=== PATIENT | female | born 1965 | race Caucasian/White ===

== ENCOUNTER 2019-09-11 10:01 | Emergency (ER) | payer MEDICAID ==
[2019-09-11] MEDS ORDERED: Sodium Chloride 0.9% 10 ML Syringe FLUSH PRN (10:37)
[2019-09-11] MEDS ORDERED: Ondansetron 4 MG/2 ML SDV IVPUSH ONE (10:37)
[2019-09-11] MEDS ORDERED: Ketorolac 30 MG/ML SDV IVPUSH ONE (10:38)
[2019-09-11] MEDS ORDERED: Sodium Chloride 0.9% 1,000 ML IV SCH (10:45)
--- NOTE | 2019-09-11 11:19 | EDM.PDOC ---
ED HPI GENERAL MEDICAL PROBLEM - General Chief Complaint: Abdominal Pain Stated Complaint: L SIDE ABD AND BACK PAIN Time Seen by Provider: 09/11/19 10:27 Source of Information: Reports: Patient History Limitations: Reports: No Limitations - History of Present Illness INITIAL COMMENTS - FREE TEXT/NARRATIVE: The patient presents with left upper abdomen and left flank pain. This has been an ongoing issue for the past 2 months but is has gotten worse the past couple of days. She says the pain comes and goes. She has some nausea but no vomiting. She has been traveling a lot the past couple months and she thought it was related to that. She said she drove her father to [employer] yesterday and then the pain was worse. She has no fever, chills, cough, chest pain, shortness of breath, diarrhea or dysuria. She has no history of kidney stones. She had a history of mono and she had trouble with her spleen after that. She is doing better now. Onset: Gradual Duration: Week(s): Location: Reports: Abdomen, Back Quality: Reports: Sharp Severity: Moderate Improves with: Reports: None Worsens with: Reports: None Associated Symptoms: Reports: Nausea/Vomiting. 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 Neurological History: Reports: None Psychiatric History: Reports: None Endocrine/Metabolic History: Reports: None Hematologic History: Reports: None Immunologic History: Reports: None Oncologic (Cancer) History: Reports: None Dermatologic History: Reports: None - Infectious Disease History Infectious Disease History: Reports: None Other Infectious Disease History: Lyme's Disease - Past Surgical History GI Surgical History: Reports: Cholecystectomy Female Surgical History: Reports: Tubal Ligation Musculoskeletal Surgical History: Reports: Shoulder Surgery Other Musculoskeletal Surgeries/Procedures:: Left Shoulder Scope Social & Family History - Tobacco Use Smoking Status *Q: Never Smoker - Caffeine Use Caffeine Use: Reports: Coffee - Recreational Drug Use Recreational Drug Use: No ED ROS GENERAL - Review of Systems Review Of Systems: See Below Constitutional: Reports: No Symptoms HEENT: Reports: No Symptoms Respiratory: Reports: No Symptoms Cardiovascular: Reports: No Symptoms Endocrine: Reports: No Symptoms GI/Abdominal: Reports: Abdominal Pain, Nausea. Denies: Vomiting : Reports: Flank Pain (Left) Musculoskeletal: Reports: Back Pain (Left back pain) ED EXAM, GI/ABD - Physical Exam Exam: See Below Exam Limited By: No Limitations General Appearance: Alert, No Apparent Distress Ears: Normal External Exam Nose: Normal Inspection Head: Atraumatic, Normocephalic Neck: Normal Inspection Respiratory/Chest: No Respiratory Distress, Lungs Clear, Normal Breath Sounds Cardiovascular: Regular Rate, Rhythm, No Edema, No Murmur GI/Abdominal Exam: Soft, Non-Tender, No Organomegaly, No Mass Back Exam: CVA Tenderness (L) Extremities: Normal Inspection Course - Vital Signs Last Recorded V/S: Last Vital Signs Temp 98.1 F 09/11/19 10:22 Pulse 66 09/11/19 10:22 Resp 16 09/11/19 10:22 BP 142/78 H 09/11/19 10:22 Pulse Ox 100 09/11/19 10:22 - Orders/Labs/Meds Orders: Active Orders 24 hr Category Date Time Status Peripheral IV Care [RC] . DIRECTED Care 09/11/19 10:38 Active Sodium Chloride 0.9% [Normal Saline] 1,000 ml Med 09/11/19 10:45 Active IV ASDIRECTED Sodium Chloride 0.9% [Saline Flush] Med 09/11/19 10:37 Active 10 ml FLUSH ASDIRECTED PRN ED Antiemetic Medication Reflex [OM.PC] Stat Oth 09/11/19 10:37 Ordered Peripheral IV Insertion Adult [OM.PC] Stat Oth 09/11/19 10:37 Ordered Medication Orders Sodium Chloride (Normal Saline) 1,000 mls @ 125 mls/hr IV ASDIRECTED OPHELIA Last Admin: 09/11/19 11:04 Dose: 125 mls/hr Sodium Chloride (Saline Flush) 10 ml FLUSH ASDIRECTED PRN PRN Reason: Keep Vein Open Last Admin: 09/11/19 11:04 Dose: 10 ml Labs: Laboratory Tests 09/11/19 09/11/19 09/11/19 Range/Units 10:37 11:05 11:05 WBC 6.99 (3.98-10.04) K/mm3 RBC 5.24 H (3.98-5.22) M/mm3 Hgb 15.1 (11.2-15.7) gm/dl Hct 44.1 (34.1-44.9) % MCV 84.2 (79.4-94.8) fl MCH 28.8 (25.6-32.2) pg MCHC 34.2 (32.2-35.5) g/dl RDW Std Deviation 37.8 (36.4-46.3) fL Plt Count 297 (182-369) K/mm3 MPV 10.4 (9.4-12.3) fl Neut % (Auto) 69.8 (34.0-71.1) % Lymph % (Auto) 21.5 (19.3-51.7) % Haines % (Auto) 4.6 L (4.7-12.5) % Eos % (Auto) 3.4 (0.7-5.8) Baso % (Auto) 0.6 (0.1-1.2) % Neut # (Auto) 4.88 (1.56-6.13) K/mm3 Lymph # (Auto) 1.50 (1.18-3.74) K/mm3 Haines # (Auto) 0.32 (0.24-0.36) K/mm3 Eos # (Auto) 0.24 (0.04-0.36) K/mm3 Baso # (Auto) 0.04 (0.01-0.08) K/mm3 Sodium 141 (136-145) mEq/L Potassium 4.0 (3.5-5.1) mEq/L Chloride 104 (98-107) mEq/L Carbon Dioxide 28 (21-32) mEq/L Anion Gap 13.0 (5-15) BUN 9 (7-18) mg/dL Creatinine 0.9 (0.55-1.02) mg/dL Est Cr Clr Drug Dosing 67.67 mL/min Estimated GFR (MDRD) > 60 (>60) mL/min BUN/Creatinine Ratio 10.0 L (14-18) Glucose 118 H (74-106) mg/dL Calcium 9.5 (8.5-10.1) mg/dL Total Bilirubin 0.5 (0.2-1.0) mg/dL AST 33 (15-37) U/L ALT 78 H (14-59) U/L Alkaline Phosphatase 85 (46-116) U/L Total Protein 8.1 (6.4-8.2) g/dl Albumin 4.2 (3.4-5.0) g/dl Globulin 3.9 gm/dL Albumin/Globulin Ratio 1.1 (1-2) Lipase 118 (73-393) U/L Urine Color Yellow (Yellow) Urine Appearance Clear (Clear) Urine pH 7.0 (5.0-8.0) Ur Specific [place] 1.020 (1.005-1.030) Urine Protein Negative (Negative) Urine Glucose (UA) Negative (Negative) Urine Ketones Negative (Negative) Urine Occult Blood Trace-lysed H (Negative) Urine Nitrite Negative (Negative) Urine Bilirubin Negative (Negative) Urine Urobilinogen 0.2 (0.2-1.0) Ur Leukocyte Esterase Negative (Negative) Urine RBC 0-5 (0-5) /hpf Urine WBC Not seen (0-5) /hpf Ur Squamous Epith Cells Not seen (0-5) /hpf Urine Bacteria Rare (FEW) /hpf Urine Mucus Not seen (FEW) /hpf Meds: Medications Generic Name Dose Route Start Last Admin Trade Name Freq PRN Reason Stop Dose Admin Sodium Chloride 1,000 mls @ 125 mls/hr 09/11/19 10:45 09/11/19 11:04 Normal Saline IV 125 mls/hr ASDIRECTED OPHELIA Administration Sodium Chloride 10 ml 09/11/19 10:37 09/11/19 11:04 Saline Flush FLUSH 10 ml ASDIRECTED PRN Administration Keep Vein Open Discontinued Medications Generic Name Dose Route Start Last Admin Trade Name Freq PRN Reason Stop Dose Admin Ketorolac Tromethamine 30 mg 09/11/19 10:38 09/11/19 11:05 Toradol IVPUSH 09/11/19 10:39 30 mg ONETIME ONE Administration Ondansetron HCl 4 mg 09/11/19 10:37 09/11/19 11:04 Zofran IVPUSH 09/11/19 10:38 4 mg ONETIME ONE Administration - Re-Assessments/Exams Free Text/Narrative Re-Assessment/Exam: 09/11/19 11:19 I ordered an IV NS at 125mL/hr, zofran 4mg IV, toradol 30mg IV, labs, UA and a CT of her abdomen and pelvis without contrast. 09/11/19 13:54 Her CBC and CMP look good. Her UA shows no UTI. Her CT shows no renal calculi ureteral dilatation or ureteral stone is seen. 2.8cm solid lesion within the upper right lobe of the liver. Recommend contrast study as a hemangioma protocol to further evaluate. This can either be performed on the same day or non-emergently. Calcified granuloma is noted within the right lobe of the liver which is believed to be incidental. Other findings believed to be incidental and nonacute. I ordered a CT of her abdomen with contrast and it showed previously mentioned liver lesion correlates to a hemangioma on contrast exam. No further follow-up is needed. She still has pain and I feel this is musculoskeletal in nature. I will give her some muscle relaxer and something stronger for pain. Departure - Departure Time of Disposition: 14:00 Disposition: Home, Self-Care 01 Condition: Good Clinical Impression: Liver hemangioma Abdominal pain Qualifiers: Abdominal location: left upper quadrant Qualified Code(s): R10.12 - Left upper quadrant pain Left-sided thoracic back pain Qualifiers: Chronicity: acute Qualified Code(s): M54.6 - Pain in thoracic spine - Discharge Information *PRESCRIPTION DRUG MONITORING PROGRAM REVIEWED*: Not Applicable *COPY OF PRESCRIPTION DRUG MONITORING REPORT IN PATIENT CANDIE: Not Applicable Prescriptions: Hydrocodone/Acetaminophen [Hydrocodon-Acetaminophen 5-325] 1 - 2 each PO Q6HR PRN #20 tablet PRN Reason: Pain Cyclobenzaprine [Flexeril] 10 mg PO TID PRN #20 tab PRN Reason: Pain Referrals: PCP,None [Primary Care Provider] - Greer Camarillo NP [ED Midlevel Provider] - 1 Week Forms: ED Department Discharge Additional Instructions: Take motrin or tylenol for pain. If that does not help try the flexeril and hydrocodone. Follow up with Greer Camarillo within a week if you are not better. Follow up with physical therapy or a chiropractor. Please return if you are worse. Sepsis Event Note - Evaluation Sepsis Screening Result: No Definite Risk - Focused Exam Vital Signs: Vital Signs Temp Pulse Resp BP Pulse Ox 09/11/19 10:22 98.1 F 66 16 142/78 H 100 Date Exam was Performed: 09/11/19 Time Exam was Performed: 13:53 - My Orders Last 24 Hours: My Active Orders 09/11/19 10:37 Sodium Chloride 0.9% [Saline Flush] 10 ml FLUSH ASDIRECTED PRN ED Antiemetic Medication Reflex [OM.PC] Stat Peripheral IV Insertion Adult [OM.PC] Stat 09/11/19 10:38 Peripheral IV Care [RC] . DIRECTED 09/11/19 10:45 Sodium Chloride 0.9% [Normal Saline] 1,000 ml IV ASDIRECTED - Assessment/Plan Last 24 Hours: My Active Orders 09/11/19 10:37 Sodium Chloride 0.9% [Saline Flush] 10 ml FLUSH ASDIRECTED PRN ED Antiemetic Medication Reflex [OM.PC] Stat Peripheral IV Insertion Adult [OM.PC] Stat 09/11/19 10:38 Peripheral IV Care [RC] . DIRECTED 09/11/19 10:45 Sodium Chloride 0.9% [Normal Saline] 1,000 ml IV ASDIRECTED
--- NOTE | 2019-09-11 11:50 | CT ---
CT abdomen and pelvis Technique: Multiple axial sections were obtained from slightly below the top of the liver inferiorly through the pubic symphysis. Intravenous and oral contrast not utilized. Study has been performed as a ureteral stone protocol. Comparison: No prior abdominal imaging is available. Findings: Ureters show no abnormal calcifications or dilatation. Kidneys show no abnormal calcifications. Other findings: Visualized lung bases show nothing acute. Low-density lesion is noted within the upper right lobe of the liver measuring 2.8 cm which does not represent a cyst. Small calcification is also seen within the upper right lobe of the liver most likely representing granuloma. No additional abnormality is appreciated within the liver. Spleen appears within normal limits. Adrenal glands show no nodule. Pancreas shows no discrete abnormality. Surgical clips are seen from prior cholecystectomy. Aorta shows no aneurysm. No retroperitoneal adenopathy is seen. No pelvic mass or adenopathy is seen. IUD is present within the uterus. Appendix not visualized with certainty. Minimal increased stool is noted throughout the colon. Bone window settings were reviewed no acute osseous finding is appreciated. Impression: 1. No renal calculi, ureteral dilatation or ureteral stone is seen. 2. 2.8 cm solid lesion within the upper right lobe of the liver. Recommend contrast study as a hemangioma protocol to further evaluate. This can either be performed on the same day or non-emergently. 3. Calcified granuloma is noted within the right lobe of the liver which is believed to be incidental. 4. Other findings believed to be incidental and nonacute as described above. Diagnostic code #9 This report was dictated in [place] Standard Time
--- NOTE | 2019-09-11 13:15 | CT ---
CT abdomen and pelvis (with contrast) Comparison: Previous noncontrast CT abdomen and pelvis study performed earlier on the same day (11:14 AM) Technique: Multiple axial sections were obtained from above the dome of the diaphragm inferiorly through the pubic symphysis. Delayed images were also obtained. Intravenous contrast was utilized. Findings: Previous liver lesion shows peripheral clumping of enhancement on the 1st image. Delayed image shows homogeneous enhancement. Findings are felt compatible with hemangioma. This finding measures about 2.6 cm. No additional enhancement is seen within the liver. No other change is seen when compared to recent noncontrast exam. Impression: 1. Previously mentioned liver lesion correlates to a hemangioma on contrast exam. No further follow-up is needed. 2. Other portions of the study are stable from prior noncontrast exam. Diagnostic code #2 This report was dictated in [place] Standard Time
== END 2019-09-11 11:05 | disposition home or self-care (01) ==
LOC: JD.ED 10:01
DX: D18.09 Hemangioma of other sites (principal); M54.6 Pain in thoracic spine; Z91.048 Other nonmedicinal substance allergy status
CPT/HCPCS: 36415; 74160; 74176; 80053; 81001; 83690; 85025; 96374; 96375; 99284; J1885; J2405; J7030

== ENCOUNTER 2021-06-26 07:25 | Day surgery (SDC) | payer MEDICAID ==
[~2021-06-26 07:25] MED LIST: Lidocaine 1%/Sod Bicarbonate in NS 8.4% 1 ML Syringe IDERM PRN; Sodium Chloride 0.9% 10 ML Syringe FLUSH PRN
--- NOTE | 2021-06-26 07:48 | PCM.PREANE ---
Preanesthetic Assessment - Procedure Proposed Procedure: Total Vaginal Hysterectomy - Anesthesia/Transfusion/Family Hx Anesthesia History: Prior Anesthesia Reaction (When waking up she has panic attacks) Family History of Anesthesia Reaction: No Transfusion History: No Prior Transfusion(s) - Review of Systems General: No Symptoms Pulmonary: No Symptoms Cardiovascular: No Symptoms Gastrointestinal: No Symptoms Neurological: Headache Other: Reports: None - Physical Assessment NPO Status Date: 06/25/21 NPO Status Time: 00:00 Height: 1.68 m Weight: 72.5 kg ASA Class: 2 Mental Status: Alert & Oriented x3 Airway Class: Mallampati = 2 Dentition: Reports: Normal Dentition, Partial (perminant retainer on top "wire") Thyro-Mental Finger Breadths: 3 Mouth Opening Finger Breadths: 2 ROM/Head Extension: Full Lungs: Clear to Auscultation, Normal Respiratory Effort Cardiovascular: Regular Rate, Regular Rhythm - Imaging/EKG Impressions: EKG NSR rate 67 - Allergies Allergies/Adverse Reactions: Allergies Allergy/AdvReac Type Severity Reaction Status Date / Time gluten Allergy Other Verified 06/26/21 08:28 Sulfa (Sulfonamide Allergy Hives Verified 06/26/21 08:28 Antibiotics) - Anesthesia Plan Pre-Op Medication Ordered: None - Acknowledgements Anesthesia Type Planned: General Anesthesia Pt an Appropriate Candidate for the Planned Anesthesia: Yes Alternatives and Risks of Anesthesia Discussed w Pt/Guardian: Yes Pt/Guardian Understands and Agrees with Anesthesia Plan: Yes PreAnesthesia Questionnaire HEENT History: Reports: Impaired Vision Cardiovascular History: Reports: None Respiratory History: Reports: None Gastrointestinal History: Reports: GERD Genitourinary History: Reports: Urinary Incontinence, UTI, Recurrent, Other (See Below) Other Genitourinary History: cystocele, rectocele 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: 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 Musculoskeletal History: Reports: Arthritis, Fibromyalgia Neurological History: Reports: Migraines Psychiatric History: Reports: None Endocrine/Metabolic History: Reports: None Hematologic History: Reports: None Immunologic History: Reports: None Oncologic (Cancer) History: Reports: None Dermatologic History: Reports: None - Infectious Disease History Infectious Disease History: Reports: None Other Infectious Disease History: Lyme's Disease - Past Surgical History Head Surgeries/Procedures: Reports: None HEENT Surgical History: Reports: None Cardiovascular Surgical History: Reports: None Respiratory Surgical History: Reports: None GI Surgical History: Reports: Cholecystectomy, Colonoscopy Female Surgical History: Reports: LEEP, Tubal Ligation Endocrine Surgical History: Reports: None Neurological Surgical History: Reports: None Musculoskeletal Surgical History: Reports: Shoulder Surgery Other Musculoskeletal Surgeries/Procedures:: Left Shoulder Scope Oncologic Surgical History: Reports: None Dermatological Surgical History: Reports: None - SUBSTANCE USE Tobacco Use Status *Q: Never Tobacco User Tobacco Use Within Last Twelve Months: No Second Hand Smoke Exposure: No Days Per Week of Alcohol Use: 2 Number of Drinks Per Day: 1 Total Drinks Per Week: 2 Recreational Drug Use History: No - HOME MEDS Home Medications: Home Meds Diclofenac Sodium [Voltaren 1% Gel] 1 dose TOP ASDIRECTED PRN 06/25/21 [History] Magnesium 250 mg PO DAILY 06/25/21 [History] Magnesium Hydroxide [Milk of Magnesia] 30 ml PO ASDIRECTED PRN 06/25/21 [History] Meloxicam 7.5 mg PO DAILY PRN 06/25/21 [History] Mv-Min/Iron/Folic/Calcium/Vitk [Women's Multivitamin Tablet] 1 tab PO DAILY 06/25/21 [History] Psyllium [Metamucil] 0.52 mg PO ASDIRECTED PRN 06/25/21 [History] Turmeric 400 mg PO DAILY 06/25/21 [History] - CURRENT (IN HOUSE) MEDS Current Meds: Current Medications Lactated Ringer's (Ringers, Lactated) 1,000 mls @ 125 mls/hr IV ASDIRECTED OPHELIA Stop: 06/26/21 23:00 Lidocaine/Sodium Bicarbonate (Lidocaine 1%/Sod Bicarbonate In Ns 8.4% 1 Ml Syringe) 0.25 ml IDERM ONETIME PRN PRN Reason: Prior to IV Start Stop: 06/26/21 18:00 Sodium Chloride (Sodium Chloride 0.9% 10 Ml Syringe) 10 ml FLUSH ASDIRECTED PRN PRN Reason: Keep Vein Open Stop: 06/26/21 18:00
[2021-06-26] MEDS ORDERED: Lidocaine 1% with EPINEPHrine 1:100,000 10 ML MDV ONE (07:58)
[2021-06-26] MEDS ORDERED: Sodium Chloride 0.9% 50 ML SDV ONE (07:59)
--- NOTE | 2021-06-26 08:19 | PCM.SN.2 ---
Time Documentation #1 Interpretation EKG Date: 06/26/21 Rhythm: NSR Rate (Beats/Min): 67 [place]: Normal P-Wave: Present QRS: Other (Suggestive of LVH) ST-T: Normal QT: Normal Comparison: NA - No Prior EKG EKG Interpretation Comments: Abnormal EKG
[2021-06-26] MEDS: Lactated Ringers 1,000 ML IV SCH ×2 (08:29→10:46)
[2021-06-26] MEDS ORDERED: Midazolam 1 MG/ML 2 ML SDV ONE (08:38)
[2021-06-26] MEDS ORDERED: Propofol 200 MG/20 ML SDV ONE ×2 (08:38→09:25)
[2021-06-26] MEDS ORDERED: fentaNYL 250 MCG/5 ML SDV ONE (08:38)
[2021-06-26] MEDS ORDERED: Rocuronium 50 MG/5 ML Vial ONE (08:39)
[2021-06-26] MEDS ORDERED: Ondansetron 4 MG/2 ML SDV ONE (08:39)
[2021-06-26] MEDS ORDERED: ceFAZolin 1 GM Vial ONE (08:39)
[2021-06-26] MEDS ORDERED: Dexamethasone 4 MG/ML 5 ML MDV ONE (08:39)
[2021-06-26] MEDS ORDERED: Dexmedetomidine 200 MCG/2 ML SDV ONE (09:29)
[2021-06-26] MEDS ORDERED: Sodium Chloride 0.9% 100 ML ONE (09:29)
[2021-06-26] MEDS ORDERED: Ketorolac 30 MG/ML SDV ONE (10:11)
[2021-06-26] MEDS ORDERED: ePHEDrine 50 MG/ML SDV ONE (10:24)
[2021-06-26] MEDS ORDERED: Ondansetron 4 MG/2 ML SDV IVPUSH PRN ×2 (10:24→10:42)
[2021-06-26] MEDS ORDERED: Acetaminophen/oxyCODONE 325-5 MG Tab PO PRN (10:24)
--- NOTE | 2021-06-26 10:32 | PCM.OPNOTE ---
- General Post-Op/Procedure Note Date of Surgery/Procedure: 06/26/21 Operative Procedure(s): Total vaginal hysterectomy, bilateral salpingo- oophorectomy, subfascial mid urethral sling, removal of anal skin tag Findings: 1. Grade 1 cystocele 2. Grade 1 rectocele 3. 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 Stress urinary continence 5. Anal skin tag 7 o'clock position Pre Op Diagnosis: 1. Grade 1 cystocele. 2. Grade 1 rectocele. 3. 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 4. Stress urinary continence. 5. Anal skin tag 7 o'clock position Post-Op Diagnosis: Same Anesthesia Technique: General ET Tube, Local (Lidocaine quarter percent with epinephrineapproximately 3 mL totallocal) Primary Surgeon: Hugo Frost Secondary Surgeon: Daryn Danielle Anesthesia Provider: Ernestina Momin Reason Customer Support Engineer Was Necessary: Retraction, assistance, patient safety, quality of care. Pathology: Uterus, bilateral fallopian tubes and ovaries, anal skin tag Fluid Replacement, Intraop: 800 Output, Urine Amount: 10 EBL in mLs: 50 Drain/Tube Comments:: Red rubber catheter used to drain and then to fill the bladder during surgery. Complications: None Condition: Good Free Text/Narrative:: Surgery duration: 45 minutes Procedure: The patient was placed in supine position on the operating table. General endotracheal anesthesia was accomplished. After positioning, and adequate prep and drape, the procedure was then performed. Sterile speculum was placed in the vagina and cervix was visualized. Cervix was injected with l idocaine quarter percent with epinephrine-20 mL used. A full circumference incision was made in the cervical epithelium. The bladder was pushed well back off cervix. Posterior cul-de-sac was then entered sharply without problems. Left uterosacral was crossclamped with a Enseal vessel closure system. The left uterosacral and then the right uterosacral ligament pedicles were developed using the Enseal system. The anterior cul-de-sac was then entered without problems and the uterine vasculature, cardinal ligament and broad ligament then developed using Enseal vessel closure system. The uterus was inverted at this time and upper broad ligament fallopian tube pedicles were crossclamped with Charlie clamps. Specimen was totally removed. Both these pedicles were then secured with the Enseal vessel closure system.. Left and right fallopian tube was normal in appearance.. Using Enseal vessel closure system each of the tubes and ovaries bilaterally were then removed and sent with the specimen. The patient was found to be hemostatically intact at this time. Vaginal cuff was sutured for hemostatic reasons with a running locked suture of 0 Monocryl from the 2 o'clock position to the 10 o'clock position posteriorly. Vaginal cuff was then closed from right to left side with a running locked suture of 0 Monocryl. Subfascial mid urethral sling was then performed. The patient's bladder was emptied with a red rubber catheter. A few cc of normal urine were removed. The epithelium overlying the urethra was grasped approximately 1 cm from the urethral meatus and approximately 2 cm cephalad from there with Allis clamps. The area of the skin overlying the medial aspect of the obturator foramen on each side just posterior to the origin the abductor longus muscle was marked with a marking pen. These 2 areas and the sub-fascial layer of the vaginal were then infiltrated with lidocaine quarter percent with epinephrine total of approximately 10 mL was used. incisions made in the epithelium overlying the urethra and 2 small stab wounds 3 mm in length were made in the 2 areas of the panty line of the patient. The subfascial planes were adequately dissected bilaterally to allow placement of the mesh. The helical adapter was then placed through the obturator on patient's left side, then brought out through the vaginal subfascial plane. Mesh was attached to it and then was pulled back through the obturator foramen. Same was done on the right side. Mesh was then snugged up to a 15 mm in diameter which was was used as a spacer to place the mesh in a tension-free position. At this point the mesh was cut off at the skin surface and the dilator was removed. The midline epithelium was closed with a short running suture of 3-0 Monocryl. Skin incisions were closed with Dermabond skin glue. These bladder was filled with approximately 250 cc of normal saline to facilitate earlier voiding and therefore discharge home. No skin tag found at 7 o'clock position had a base of approximately 8 mm in length approximate 1 cm. Appears to be a hemorrhoidal skin tag. A 3-0 Monocryl suture was placed around this area and tied at its base. Tag was removed without problems. The patient was returned to supine position, awakened from general endotracheal anesthesia and was discharged from operating room in good condition
[2021-06-26] MEDS ORDERED: fentaNYL 100 MCG/2 ML SDV IVPUSH PRN (10:42)
[2021-06-26] MEDS ORDERED: HYDROmorphone 0.5 MG/0.5 ML Syringe IVPUSH PRN (10:42)
--- NOTE | 2021-06-26 10:44 | PCM.POSTAN ---
POST ANESTHESIA ASSESSMENT - MENTAL STATUS Mental Status: Alert, Oriented - VITAL SIGNS Vital Signs: Last Vital Signs Temp 97.1 F 06/26/21 10:33 Pulse 72 06/26/21 10:33 Resp 16 06/26/21 10:33 BP 112/42 L 06/26/21 10:33 Pulse Ox 100 06/26/21 10:33 - RESPIRATORY Respiratory Status: Respiratory Rate WNL, Airway Patent, O2 Saturation Stable - CARDIOVASCULAR CV Status: Pulse Rate WNL, Blood Pressure Stable - GASTROINTESTINAL GI Status: No Symptoms - PAIN Pain Score: 0 - POST OP HYDRATION Hydration Status: Adequate & Stable
--- NOTE | 2021-06-26 11:20 | PCM48HPAN ---
Post Anesthesia Note - EVALUATION WITHIN 48HRS OF ANESTHETIC Vital Signs in Normal Range: Yes Patient Participated in Evaluation: Yes Respiratory Function Stable: Yes Airway Patent: Yes Cardiovascular Function Stable: Yes Hydration Status Stable: Yes Pain Control Satisfactory: Yes Nausea and Vomiting Control Satisfactory: Yes Mental Status Recovered: Yes Vital Signs: Last Vital Signs Temp 97.8 F 06/26/21 11:03 Pulse 73 06/26/21 11:03 Resp 10 L 06/26/21 11:03 BP 103/47 L 06/26/21 11:03 Pulse Ox 97 06/26/21 11:03
== END 2021-06-26 13:15 | disposition home or self-care (01) ==
LOC: JD.SDS 07:25
PROVIDERS: ATTEND Obstetrics & Gynecology
DX: D25.1 Intramural leiomyoma of uterus (principal); Q87.43 Marfan syndrome with skeletal manifestation; N83.312 Acquired atrophy of left ovary; N83.311 Acquired atrophy of right ovary; N72 Inflammatory disease of cervix uteri; N87.9 Dysplasia of cervix uteri, unspecified; N80.0 Endometriosis of uterus; N81.6 Rectocele; N81.4 Uterovaginal prolapse, unspecified; N39.3 Stress incontinence (female) (male); G47.00 Insomnia, unspecified; M79.7 Fibromyalgia; G43.909 Migraine, unspecified, not intractable, without status migrainosus; K21.9 Gastro-esophageal reflux disease without esophagitis; Z88.2 Allergy status to sulfonamides; Z79.899 Other long term (current) drug therapy; Z98.890 Other specified postprocedural states; Z90.49 Acquired absence of other specified parts of digestive tract
CPT/HCPCS: 36415; 46220; 57288; 58262; 86850; 86900; 86901; 88305; 93005; A9270; C1771; J0690; J1100; J1885; J2250; J2405; J2704; J3010; J7120; 00944

== ENCOUNTER 2023-04-13 20:27 | Emergency (ER) | payer BC, MEDICAID ==
[2023-04-13] MEDS ORDERED: Sodium Chloride 0.9% 10 ML Syringe FLUSH PRN (21:03)
[2023-04-13] MEDS ORDERED: Ketorolac 30 MG/ML SDV IVPUSH ONE (21:04)
[2023-04-13] MEDS ORDERED: fentaNYL 100 MCG/2 ML SDV IVPUSH ONE ×3 (21:04→22:43)
[2023-04-13 21:11] LABS: BASOPHILS ABSOLUTE AUTO 0.02 K/mm3 (0.01-0.08); BASOPHILS PERCENT AUTO 0.3 % (0.1-1.2); EOSINOPHILS ABSOLUTE AUTO 0.05 K/mm3 (0.04-0.36); EOSINOPHILS PERCENT AUTO 0.6 (0.7-5.8); HEMATOCRIT 39.2 % (34.1-44.9); IMMATURE GRAN ABSOLUTE AUTO 0.08 K/mm3 (0.00-0.10); LYMPHOCYTES ABSOLUTE AUTO 2.46 K/mm3 (1.18-3.74); LYMPHOCYTES PERCENT AUTO 31.1 % (19.3-51.7); MEAN CORPUSCULAR HEMOGLOBIN 27.6 pg (25.6-32.2); MEAN CORPUSCULAR HGB CONC 33.2 g/dl (32.2-35.5); MEAN CORPUSCULAR VOLUME 83.2 fl (79.4-94.8); MEAN PLATELET VOLUME 10.3 fl (9.4-12.3); MONOCYTES ABSOLUTE AUTO 0.54 K/mm3 (0.24-0.36); MONOCYTES PERCENT AUTO 6.8 % (4.7-12.5); NEUTROPHILS ABSOLUTE AUTO 4.76 K/mm3 (1.56-6.13); NEUTROPHILS PERCENT AUTO 60.2 % (34.0-71.1); PLATELET COUNT,PLT 290 K/mm3 (182-369); RED BLOOD CELL COUNT 4.71 M/mm3 (3.98-5.22); WHITE BLOOD CELL COUNT,WBC 7.91 K/mm3 (3.98-10.04)
[2023-04-13 21:18] LABS: ALBUMIN 3.6 g/dl (3.4-5.0); ANION GAP 14.2 (5-15); BILIRUBIN TOTAL 0.4 mg/dL (0.2-1.0); BUN/CREATININE RATIO 13.3 (14-18); CALCIUM 9.1 mg/dL (8.5-10.1); CREATININE 0.9 mg/dL (0.55-1.02); EST CRCL DRUG DOSING (CG) 64.56 mL/min; POTASSIUM,K 3.2 mEq/L (3.5-5.1); PROTEIN TOTAL,TP 7.2 g/dl (6.4-8.2)
[2023-04-13] MEDS ORDERED: Prochlorperazine 10 MG/2 ML SDV IVPUSH ONE (22:43)
[2023-04-13] MEDS ORDERED: Iopamidol 755 Mg/ML 100 ML Bottle IVPUSH ONE (22:46)
[2023-04-13] MEDS ORDERED: Sodium Chloride 0.9% 100 ML IV SCH (23:00)
[2023-04-13] MEDS ORDERED: Acetaminophen/oxyCODONE 325-5 MG Tab PO ONE (23:19)
[2023-04-14] MEDS ORDERED: Aspirin 81 MG Tab.Chew PO ONE (00:19)
== END 2023-04-14 01:12 | disposition other institution (70) ==
LOC: JD.ED 20:27
DX: S52.501A Unspecified fracture of the lower end of right radius, initial encounter for closed fracture (principal); S12.101A Unspecified nondisplaced fracture of second cervical vertebra, initial encounter for closed fracture; I77.71 Dissection of carotid artery; I77.74 Dissection of vertebral artery; S15.092A Other specified injury of left carotid artery, initial encounter; S15.091A Other specified injury of right carotid artery, initial encounter; I65.09 Occlusion and stenosis of unspecified vertebral artery; S80.11XA Contusion of right lower leg, initial encounter; K21.9 Gastro-esophageal reflux disease without esophagitis; Z79.899 Other long term (current) drug therapy; Z88.2 Allergy status to sulfonamides; Z91.018 Allergy to other foods; V80.010A Animal-rider injured by fall from or being thrown from horse in noncollision accident, initial encounter; Y93.52 Activity, horseback riding
CPT/HCPCS: 36415; 70450; 70498; 71045; 72125; 73080; 73110; 73590; 80053; 80307; 85025; 96374; 96375; 96376; 99285; A9270; J0780; J1885; J3010; J3490; Q9967